=== PATIENT | male | born 1960 | race Caucasian/White ===

== ENCOUNTER 2016-12-06 11:58 | Outpatient (CLI) | payer BC ==
[2016-12-06 13:09] LABS: #Eosinphils 0.1 thou/uL (0.0-0.7); #Lymphocytes 1.5 thou/uL (1.20-3.40); #Monocytes 0.6 thou/uL (0.11-0.59); #Neutrophils 6.2 thou/uL (1.40-6.50); %Basophils 0.3 % (0.0-1.0); %Eosinophils 1.6 % (0.0-10.0); %Lymphocytes 17.6 % (21.0-51.0); %Monocytes 7.3 % (0.0-10.0); Hematocrit 43.1 % (42.0-52.0); Mean Platelet Volume 7.2 fL (7.4-10.4); Red Blood Cell (RBC) Count 4.57 mill/uL (4.70-6.10); White Blood Cell (WBC) Count 8.5 thou/uL (4.8-10.8)
[2016-12-06 13:32] LABS: Anion Gap 14 mmol/L (10-20); BUN (Urea Nitrogen) 23 mg/dL (8.4-25.7); Calc. Creatinine Clearance 0 mL/min (70-130); Calcium 9.2 mg/dL (7.8-10.44); Carbon Dioxide 28 mmol/L (22-29); Chloride 105 mmol/L (98-107); Estimated GFR-MDRD 71
--- NOTE | 2016-12-06 14:54 | EKG ---
Test Reason : Blood Pressure : / mmHG Vent. Rate : 067 BPM Atrial Rate : 067 BPM P-R Int : 136 ms QRS Dur : 092 ms QT Int : 404 ms P-R-T Axes : 030 027 074 degrees QTc Int : 426 ms Normal sinus rhythm Normal ECG No previous ECGs available Confirmed by ROSEMARY AG ([id number]) on 12/06/2016 2:54:18 PM Referred By: NATALI Confirmed By:ROSEMARY AG
== END 2016-12-06 11:59 | disposition home or self-care (01) ==
LOC: LABBT 11:58
PROVIDERS: ATTEND Specialist
DX: Z01.818 Encounter for other preprocedural examination (principal); K64.8 Other hemorrhoids
CPT/HCPCS: 80048; 85025; 93005; 93010

== ENCOUNTER 2016-12-19 07:57 | Day surgery (SDC) | payer BC ==
[2016-12-06 12:46] VITALS: BMI 33.0
[2016-12-19] MEDS ORDERED: Ketorolac Tromethamine 30 MG/ML VIAL ONE (08:17)
[2016-12-19] MEDS ORDERED: Fentanyl 100 MCG/2 ML VIAL ONE ×3 (08:36→11:48)
[2016-12-19] MEDS ORDERED: Midazolam HCl 2 mg/2 ml Vial ONE (08:36)
[2016-12-19] MEDS ORDERED: cefOXitin Sodium 2 GM, Admixture Fee 1 EACH in Sodium Chloride 0.9% 100 ML IVPB SCH (08:45)
[2016-12-19] MEDS ORDERED: Lidocaine 2% w/Epinephrine 1:200K 20 ML VIAL ONE (09:33)
[2016-12-19] MEDS ORDERED: Lidocaine 2% Jelly 5 ML TUBE ONE (09:34)
[2016-12-19] MEDS ORDERED: Bupivacaine 0.25% HCL 30 ML VIAL ONE (09:34)
[2016-12-19] MEDS ORDERED: Bupivacaine PF 0.5% 30 ML VIAL ONE (10:08)
[2016-12-19] MEDS ORDERED: Lidocaine 1% PF 5 ML VIAL ONE (10:23)
[2016-12-19] MEDS ORDERED: Propofol 200 MG/20 ML VIAL ONE (10:23)
[2016-12-19] MEDS ORDERED: Ondansetron HCl/PF 4 MG/2 ML Vial ONE (10:23)
[2016-12-19] MEDS ORDERED: Dexamethasone 20 MG/5 ML VIAL ONE (10:23)
[2016-12-19] MEDS ORDERED: PHENYLEPHRINE-NS 100 MCG/ML 10 ML SYRINGE ONE (10:23)
[2016-12-19] MEDS ORDERED: Glycopyrrolate 0.2 MG/ML 5 ML SYRINGE ONE (10:23)
[2016-12-19] MEDS ORDERED: HYDROcodone/Acetaminophen 5/325 mg Tablet ONE (13:14)
--- NOTE | 2016-12-19 19:01 | OP ---
DATE OF PROCEDURE: 12/19/2016 PREOPERATIVE DIAGNOSIS: Internal hemorrhoids. POSTOPERATIVE DIAGNOSIS: Internal hemorrhoids with an external anal nodule/hemorrhoid. OPERATION PERFORMED: PPH stapled hemorrhoidectomy, excision of external anal 1 cm mass. SURGEON: Simon Bowers M.D. ANESTHESIA: General endotracheal. INDICATIONS: The patient is a 56-year-old white male. He presented with symptomatic internal hemor rhoids and is taken to the operating room at this time for treatment within the PPH stapler. DESCRIPTION OF OPERATION: Informed consent was obtained. The patient was taken to the operating ro om where general endotracheal anesthesia was obtained with the patient in supine position. He was t hen rolled over in the prone jackknife position. Perianal area was trimmed of hair, prepped with Be tadine and draped in sterile fashion. There was noted to be a visible and palpable firm nodule just external to the anus at about the 5 o' clock radian. This was a little over a centimeter in diameter. This was excised in full thickness fashion and the defect was closed with 3 interrupted sutures of 3-0 chromic. The specimen was passe d off the field to pathology. The anus was infiltrated in a 4 quadrant intersphincteric fashion using 0.25% Marcaine with epinephr ine. The anus was gently and uneventfully dilated. The anal retractor was secured in place using 2 -0 Vicryl sutures. Partial obturator was utilized to place a pursestring suture of 3-0 Prolene paige ral centimeters above the dentate line. The PPH stapler was maximally opened and the anvil was pass ed proximal to the pursestring suture. The suture was secured around the post and with traction on the suture, the stapler was closed maximally and then fired. The stapler was withdrawn and the spec imen was inspected and found to be of appropriate width and thickness. Attention was returned to the staple line which was inspected using a partial obturator. Several ar eas of the staple line were oversewed with 3-0 Vicryl suture. There was no evidence of any oozing a long the staple line thereafter. There did appear to be a dominant internal hemorrhoid at about the 1 o'clock radian. This appeared to be a bit well treated with stapling. The anal retractor was then removed. Gelfoam with lidocaine jelly was placed within the rectum. Dr otto gauze with mesh pants was placed externally. There were no complications. The patient tolerated the procedure well and was taken to recovery room in stable condition.
== END 2016-12-19 13:43 | disposition home or self-care (01) ==
LOC: SDC 07:57
PROVIDERS: ATTEND Specialist
PROC: 0DBQXZZ Excision of Anus, External Approach (ICD-10-PCS; principal; 2016-12-19)
PROC: 06BY3ZC Excision of Hemorrhoidal Plexus, Percutaneous Approach (ICD-10-PCS; principal; 2016-12-19)
DX: K64.4 Residual hemorrhoidal skin tags (principal); I10 Essential (primary) hypertension; E78.00 Pure hypercholesterolemia, unspecified; N40.0 Benign prostatic hyperplasia without lower urinary tract symptoms; M10.9 Gout, unspecified; Z79.899 Other long term (current) drug therapy; Z98.890 Other specified postprocedural states; Z87.891 Personal history of nicotine dependence; Z82.49 Family history of ischemic heart disease and other diseases of the circulatory system
CPT/HCPCS: 88304; 96374; J0131; J0694; J1100; J1885; J2001; J2250; J2270; J2405; J2704; J3010; J7050; S0020

== ENCOUNTER 2016-12-23 16:14 | Emergency (ER) | payer BC ==
[2016-12-23 16:56] LABS: #Eosinphils 0.2 thou/uL (0.0-0.7); #Lymphocytes 1.2 thou/uL (1.20-3.40); #Monocytes 0.8 thou/uL (0.11-0.59); %Basophils 0.2 % (0.0-1.0); %Eosinophils 1.7 % (0.0-10.0); %Lymphocytes 9.5 % (21.0-51.0); %Monocytes 6.2 % (0.0-10.0); Hematocrit 37.3 % (42.0-52.0); Mean Platelet Volume 6.7 fL (7.4-10.4); Red Blood Cell (RBC) Count 3.96 mill/uL (4.70-6.10); White Blood Cell (WBC) Count 12.1 thou/uL (4.8-10.8)
[2016-12-23 17:16] LABS: ALT (SGPT) 181 U/L (8-55); AST (SGOT) 121 U/L (5-34); Alkaline Phosphatase 117 U/L (40-150); Anion Gap 12 mmol/L (10-20); BUN (Urea Nitrogen) 16 mg/dL (8.4-25.7); Bilirubin, Total 0.6 mg/dL (0.2-1.2); Calc. Creatinine Clearance 0 mL/min (70-130); Carbon Dioxide 29 mmol/L (22-29); Chloride 100 mmol/L (98-107); Estimated GFR-MDRD 71; Protein, Total 6.9 g/dL (6.0-8.3)
[2016-12-23 17:23] LABS: Bilirubin Negative (Negative); Blood, Urine Moderate (Negative); Glucose, Urine (Dipstick) Negative (Negative); Ketone, Urine Negative (Negative); Nitrite Negative (Negative); Protein, Urine (Dipstick) 100 mg/dL (Neg-Trace)
[2016-12-23 17:25] LABS: Bacteria/HPF None Seen HPF (None Seen); Hyaline Casts/LPF 0-3 HYALINE CAST LPF (0-3 Hyaline); RBC/HPF 21-50 HPF (0-3); Squamous Epithelial None Seen HPF (0-3); WBC/HPF 0-3 HPF (0-3)
== END 2016-12-23 18:09 | disposition home or self-care (01) ==
LOC: ERS 16:14
DX: R33.9 Retention of urine, unspecified (principal); M10.9 Gout, unspecified; I10 Essential (primary) hypertension; E78.00 Pure hypercholesterolemia, unspecified; Z79.891 Long term (current) use of opiate analgesic; Z79.899 Other long term (current) drug therapy
CPT/HCPCS: 36415; 51702; 80053; 81003; 81015; 85025

== ENCOUNTER 2023-01-18 08:17 | Day surgery (SDC) | payer BC ==
[2023-01-18 08:37] LABS: #Eosinphils 0.3 thou/uL (0.0-0.7); #Monocytes 0.6 thou/uL (0.11-0.59); #Neutrophils 4.6 thou/uL (1.40-6.50); %Basophils 0.4 % (0.0-1.0); %Eosinophils 3.8 % (0.0-10.0); %Lymphocytes 22.4 % (21.0-51.0); %Monocytes 7.8 % (0.0-10.0); %Neutrophils 65.3 % (42.0-75.0); Hematocrit 41.7 % (42.0-52.0); Hemoglobin 13.8 g/dL (14.0-18.0); Mean Corpuscular HGB CONC 33.1 g/dL (32.0-36.0); Mean Corpuscular Hemoglobin 30.3 pg (27.0-31.0); Mean Corpuscular Volume 91.4 fl (78.0-98.0); Mean Platelet Volume 9.9 fL (7.4-10.4); Platelet Count 184 10x3/uL (130-400); RBC Distribution Width 13.2 % (11.5-14.5); Red Blood Cell (RBC) Count 4.56 mill/uL (4.70-6.10); White Blood Cell (WBC) Count 7.1 10x3/uL (4.8-10.8)
[2023-01-18 08:50] LABS: INR-International Normal Ratio 0.9; PTT 28.1 sec (22.9-36.1); Prothrombin Time 12.6 sec (12.0-14.7)
[2023-01-18] MEDS ORDERED: Lidocaine 1% PF 5 ML VIAL ONE (09:50)
[2023-01-18] MEDS ORDERED: Sodium Bicarbonate 2.5 MEQ/5 ML VIAL ONE (09:50)
[2023-01-18] MEDS ORDERED: Midazolam HCl 2 mg/2 ml Vial ONE (09:50)
[2023-01-18] MEDS ORDERED: fentaNYL 50 mcg/mL 1 mL Vial ONE (09:50)
[2023-01-18] MEDS ORDERED: Lidocaine 1% w/Epinephrine 1:100K 20 ML VIAL ONE (10:13)
== END 2023-01-18 14:00 | disposition home or self-care (01) ==
LOC: CT 08:17
PROVIDERS: ATTEND Internal Medicine Nephrology
PROC: 0TB10ZX Excision of Left Kidney, Open Approach, Diagnostic (ICD-10-PCS; principal; 2023-01-18)
DX: N18.2 Chronic kidney disease, stage 2 (mild) (principal); R80.9 Proteinuria, unspecified; I12.9 Hypertensive chronic kidney disease with stage 1 through stage 4 chronic kidney disease, or unspecified chronic kidney disease; E55.9 Vitamin D deficiency, unspecified; N17.0 Acute kidney failure with tubular necrosis; I70.1 Atherosclerosis of renal artery; N28.9 Disorder of kidney and ureter, unspecified; E78.5 Hyperlipidemia, unspecified; M10.9 Gout, unspecified; Z98.890 Other specified postprocedural states
CPT/HCPCS: 50200; 77012; 85025; 85610; 85730; 88329; J2250; J3010